=== PATIENT | female | born 1965 | race Caucasian/White ===

== ENCOUNTER 2019-03-30 03:09 | Emergency (ER) | payer MEDICAID ==
[~2019-03-30] VITALS: Ht 162.6 cm; Wt 73.9 kg
[2019-03-30 03:23] VITALS: Ht 162.6 cm; Wt 73.9 kg
[2019-03-30 06:23] VITALS: BP 132/98
== END 2019-03-30 06:24 | disposition home or self-care (01) ==
LOC: ED 03:09
DX: L03.115 Cellulitis of right lower limb (principal)
CPT/HCPCS: 82962; J0690; J1885